=== PATIENT | male | born 1970 | race Caucasian/White ===

== ENCOUNTER 2017-03-05 20:53 | Emergency (ER) | payer BC, OTHER ==
[~2017-03-05] VITALS: Ht 185.4 cm; Wt 92.4 kg
[2017-03-05 20:58] VITALS: TEMP 36.8; Ht 185.4 cm; Wt 92.4 kg
[2017-03-05] MEDS ORDERED: BUPIVACAINE 0.25% 30 ML VIAL INFIL STA (21:08)
[2017-03-05] MEDS ORDERED: XYLOCAINE 1%/SOD BICARB 20 ML VIAL INFIL ONE (21:15)
[2017-03-05] MEDS ORDERED: DIPHTHERIA/TETANUS/PERTUSSIS 0.5 ML SYR/VIAL IM. ONE (21:15)
--- NOTE | 2017-03-05 21:24 | DIAGNOSTIC IMAGING REPORT ---
L FINGER(S) MIN 2 VIEWS ROUTINE HISTORY: 46 years-old Male tip of left 2nd finger avulsed, eval open fracture acute injury of the left second finger COMPARISON: None available TECHNIQUE: 3 views of the left second finger FINDINGS: There is a focal soft tissue defect noted involving the dorsal aspect of the distal left second finger. The distal phalanx appears intact. No acute fracture or dislocation. No opaque foreign body identified. IMPRESSION: Focal laceration of the distal second finger without acute bony abnormality or opaque foreign body. The above report was generated using voice recognition software. It may contain grammatical, syntax or spelling errors. Electronically signed by: Vicente Vargas M.D. 03/05/2017 9:23 PM Dictated Date/Time: 03/05/2017 9:21 PM
[2017-03-05] MEDS ORDERED: IBUP-1450 PO (21:30)
--- NOTE | 2017-03-05 21:40 | EMERGENCY ROOM VISIT NOTE ---
ED Visit Note First contact with patient: 21:02 CHIEF COMPLAINT: Finger injury today HISTORY OF PRESENT ILLNESS: This 46-year-old male patient presents to the emergency department with complaint of an injury to his left second finger today at 3:15pm. He states that he was operating a table saw, caught the tip of his finger in the saw blade. He states that he has had The bleeding has been controlled since arrival. Patient reports his last tetanus shot was in 2012. He is right-hand dominant. He denies any other injuries. He denies any weakness, numbness or tingling of the finger. He denies any suspected foreign bodies. He states his last tetanus was over 10 years ago. REVIEW OF SYSTEMS: Neurological: No headache, new changes in mental status, focal weakness, numbness. Skin: No rash, new lesions, or masses. General: No fever or chills, fatigue, loss of appetite, or significant recent weight gain or loss. PMH: The patient is healthy; there is no significant medical or surgical history. SOCIAL HISTORY: Patient lives at home. PHYSICAL EXAM: Vital Signs: Reviewed Nurse's notes. The wrist joint is not swollen or tender. The hand is not swollen and the skin is intact. The distal second finger tip is avulsed off, through the distal end of the nail and the pad of the finger. No exposed bone, tendon, or blood vessel visible in the base of the wound. The area is tender to palpation, mild bleeding noted. Sensation is intact on all aspects of the distal finger, flexion and extension fully intact. IMAGING: L FINGER(S) MIN 2 VIEWS ROUTINE HISTORY: 46 years-old Male tip of left 2nd finger avulsed, eval open fracture acute injury of the left second finger COMPARISON: None available TECHNIQUE: 3 views of the left second finger FINDINGS: There is a focal soft tissue defect noted involving the dorsal aspect of the distal left second finger. The distal phalanx appears intact. No acute fracture or dislocation. No opaque foreign body identified. IMPRESSION: Focal laceration of the distal second finger without acute bony abnormality or opaque foreign body. EMERGENCY DEPARTMENT COURSE: I examined the patient. Differential diagnosis includes avulsion, laceration, nail bed injury, foreign body, open fracture, among others. An X-Ray of the left second finger is negative for fractures. I obtained verbal consent from the patient to perform the procedure. The base of the left second finger was cleansed with saline and Betadine, and a digital block was performed with 50:50 solution of 1% buffered lidocaine and 0.25% bupivacaine. After appropriate anesthesia was achieved, the wound was irrigated with pressure using copious amount of normal saline. The wound was then explored, noting a fingertip laceration extending through the nail and nailbed, with partial avulsion of the nail bed and fingertip tissue. There is also 1 cm of nonviable tissue was debrided from the wound edges. The wound was cleansed and dried, then a piece of GelFoam was applied to the fingertip wound, with good adherence and bleeding controlled. An occlusive dressing applied. Patient tolerated the procedure well. The patient was educated on proper wound care and follow up, as well as concerning signs to watch for, he verbalized understanding. The patient was discharged home in stable condition and ambulatory. Blood pressure screening: The patient was found to have an elevated blood pressure and was referred to their primary doctor for recheck and further treatment. Problem List Medical Problems: (1) Dizziness And Giddiness Status: Resolved (2) Head Injury, Nos Status: Resolved (3) No known health problems Status: Chronic (4) Syncope And Collapse Status: Resolved Current/Historical Medications Scheduled PRN Ibuprofen (Motrin), 600 MG PO Q6H PRN for Pain Allergies Coded Allergies: No Known Allergies (Unverified , 08/30/13) Vital Signs Date Time Temp Pulse Resp B/P (MAP) Pulse Ox O2 Delivery O2 Flow Rate FiO2 03/05/17 22:55 68 20 147/87 98 03/05/17 20:58 36.8 61 18 157/98 96 Room Air Medications Administered Medications (Trade) Dose Ordered Sig/Susan Route Start Time Stop Time Status Last Admin Dose Admin Diphtheria/ Pertussis/Tetanus Vacc (Adacel Inj) 0.5 ml ONCE ONCE IM. 03/05/17 21:15 03/05/17 21:16 DC 03/05/17 21:20 0.5 ML Departure Information Impression Primary Impression: Avulsion, finger tip Dispostion Home / Self-Care Condition GOOD Referrals No Doctor, Assigned (PCP) Patient Instructions ED Avulsion Dermal, My [facility] Additional Instructions You have been treated in the Emergency Department today for your fingertip Avulsion. Leave the GELFOAM and dressing in place for the next 3 days. Keep the dressing clean and dry until time for removal. To remove the GELFOAM dressing, remove the overlying tape and then soak the wound in warm water until the piece of GELFOAM can be easily removed. Proper wound care is essential for adequate wound healing and infection prevention. You can shower and clean the wound with soap and water. Do not scour over the wound, pat dry with a towel. You can use an antibiotic ointment with a dressing/bandage over the wound for the next 3-4 days. After this time you may leave the wound dry and open to the air. Look for signs of infection of the wound including: increased pain, swelling, foul discharge, streaking up the hand, or fevers/chills. If any of these are noticed you should return to the Emergency Department for further assessment and treatment. As with any laceration you may have received nerve damage to the surrounding tissues. This damage could be permanent. For pain control, you can use the following [id number] medicines (if >12 yo): - Regular strength (325mg/tab) Tylenol (acetaminophen) 2 tabs every 4-6 hours as needed. Do not exceed 10 tablets in a 24 hour period. Avoid taking more than 3000 mg of Tylenol per day. This includes any other sources of acetaminophen you may take on a regular basis. - Regular strength (200 mg/tab) Advil (ibuprofen) 1-2 tabs every 4-6 hours as needed. Do not exceed a dose of 2400 mg per day. Return to the emergency department if your symptoms worsen despite treatment course outlined above. Work Instructions Return To Work: 1 day Problem Qualifiers Primary Impression: Avulsion, finger tip Encounter type: initial encounter Qualified Codes: S61.209A - Unspecified open wound of unspecified finger without damage to nail, initial encounter
[2017-03-05] MEDS ORDERED: GELATIN SPONGE 12-7MM EXT ONE (21:45)
[2017-03-05 22:55] VITALS: BP 147/87; PULSE 68; O2SAT 98
== END 2017-03-05 22:55 | disposition home or self-care (01) ==
LOC: C.EDB 20:55 → C.EDD 22:55
DX: S61.301A Unspecified open wound of left index finger with damage to nail, initial encounter (principal); W31.2XXA Contact with powered woodworking and forming machines, initial encounter; Z23 Encounter for immunization

== ENCOUNTER 2019-08-05 11:57 | Observation (INO) ==
[2019-08-05] MEDS ORDERED: SODIUM CHLORIDE 0.9% 1000ML 1,000 ML IV SCH (12:45)
--- NOTE | 2019-08-05 12:46 | Emergency Department Note ---
Impression & Plan Stroke-like symptoms ED Provider Note NAME: GENNA CURRY AGE: 48 SEX: M ARRIVES VIA: Walk-In INFORMANT: [Patient] ED PROVIDER(S): Tay Delgadillo MD CHIEF COMPLAINT: PLAN: Disposition: Admitted Condition: [Good] MEDICAL DECISION MAKING: Patient presented with symptoms concerning for strokelike/TIA event. He had resolution of symptoms. He underwent a work-up below. His laboratory testing was unremarkable. Lyme testing showed an IgG but no IgM. He has prior history of Lyme infection. Patient underwent CT imaging which did not reveal an acute infarction. He does have abnormalities noted on CT angiography of the head. This prompted a consult with Jasmina mcgarry, Dr. Blanc. She recommended a Plavix load of 300 mg as well as aspirin and then dual antiplatelet therapy. She also agreed with the hydration that the patient was already started on. She advised the patient should be admitted and have a further work-up regarding the vessel abnormality seen on angiography. I did discuss this with the patient. He was educated. He was in agreement. I did consult with Dr. Hi of [facility]. He evaluated the patient in the ER and admitted him for further management. Triage Nursing notes reviewed and agree them. [Prior medical records reviewed] patient had his neurologic event in 2013 and 2014. Treated for Lyme. Vital Signs: reviewed and remarkable for [no significant abnormalities] Differential diagnosis: CVA, TIA, Lyme disease, Coronavirus, Infection, dehydration, metabolic abnormality, hypo/hyperglycemia, electrolyte disturbance, anemia, hypoxia, cardiac sources, intracerebral event, toxicologic, neurologic, as well as other pathologies. ER treatment provided: NSS hydration Oral Plavix Oral aspirin Diagnostics interpreted by me: ECG: Rate: 61 Rhythm:Normal sinus [place]: Left axis deviation QRS:Normal ST segements:No elevation or depression Other:No PACs or PVCs Cardiac Monitoring: Cardiac monitoring ordered by me: The patient was placed on continuous cardiac monitoring and observed. It revealed a normal sinus rhythm at 63 beats per minute without ectopy or evidence of dysrhythmia. Laboratory studies: [See below] unremarkable CBC and chemistry panel. Imaging studies: CT angiography of the head and neck was performed. There is no acute infarction. Abnormalities noted within the CT angiography of the head. I refer you to the EMR for details. Consultation(s): Dr. Guanaco Rueda. [facility] group, Dr. Hi HPI: The patient is a 48 year old male who presents to the Emergency Room with complaints of stroke like symptoms. He had slurred speech and numbness in the left hand, 3rd digit. This started at 1030 this morning and is resolved. The patient also notes the following associated symptoms, intermittent left headaches over the last few days and occasional right eye peripheral vision disturbance, and occasional nausea. The patient has been using Motrin for relieving factors. Current pain is rated as 0/10. He has a history of Neuro Lyme in 2013 and 2014. A personal friend who is a physician directed him to the ER. He was concerned for the stroke symptoms in light of the current coronavirus pandemic. Pt has no known sick contacts. Pt denies LOC, fevers, chills, diaphoresis, visual changes, neck pain, chest pain, breathing difficulties, vomiting, abdominal pain, back pain, melena, hematochezia, urinary symptoms, lymphadenopathy, rash, or other complaints. ROS: See above HPI for pertinent positives & negatives. A total of [10] systems reviewed and were otherwise negative. PAST MEDICAL HISTORY:[See Below] PAST SURGICAL HISTORY:[See Below] FAMILY HISTORY:[See Below] SOCIAL HISTORY:[See Below] HOME MEDICATIONS:[See Below] ALLERGIES:[See Below] VITALS:[See Below] PHYSICAL EXAMINATION: GENERAL: Awake, alert, well appearing, no distress HENT: Normocephalic, atraumatic. TM's normal. Oropharynx unremarkable. EYES: PERRL. EOMI. Normal conjunctiva. Sclera non-icteric. NECK: Supple. Normal inspection. Non-tender. No nuchal rigidity. FROM. No bruit. RESPIRATORY: Breath sounds equal. No wheezes. No rhonchi. Normal respiratory effort. CARDIAC: Normal rate. Regular rhythm. No murmurs. No rubs. No JVD. GI: Soft, non distended. No tenderness to palpation. No rebound or guarding. No masses. RECTAL: Deferred. MUSCULOSKELETAL: Unremarkable. No edema. No discoloration. Gross motor strength symmetric. NEURO: Cranial nerves 2-12 grossly intact. Normal sensorium. No sensory or motor deficits noted. Speech normal. No pronator drift. Normal rapid a lternating movements. Gait normal. Negative rhomberg. Normal heel to [place]. SKIN: No rash or jaundice noted. LYMPH: No adenopathy. ED COURSE: [Critical Care:] [None] Tay Delgadillo MD Past Med/Surg History Surgical History (Updated 04/24/19 @ 08:05 by Francie Vasquez) S/P wisdom tooth extraction Family History (Updated 04/24/19 @ 08:19 by Carlos Arellano DO) Mother Skin cancer Brother Epilepsy Grandmother Breast cancer Melanoma Denies family history of Ovarian cancer Myocardial infarction Colorectal cancer Social History (Updated 04/24/19 @ 08:08 by Francie Vasquez) Preferred Language: Beninese Communication Ability: Effective Visual Impairment: No Limitations Hearing Ability: Normal marital status: Current Living Situation: Spouse current occupational status: employed current occupation: self - snow removal Feels Safe at Home: Yes Smoking Status: Never smoker Tobacco Type: cigarettes ; Age Started Using Tobacco: 10 ; Age Quit Using Tobacco: 28 ; packs per day: 1 ; Hx Alcohol Use: No Hx Substance Use: No Childhood Exposure to Second-Hand Smoke: No Dental Care, Regularly: Yes Physical Activity Frequency: 3-4 Times per Week Seatbelt Use: always Sunscreen Use: Yes Allergies Allergies Allergy/AdvReac Type Severity Reaction Status Date / Time No Known Allergies Allergy Mild Unverified 08/05/19 13:24 Home Meds Home Medications Medication Instructions Recorded Confirmed No Known Home Medications 11/24/18 08/05/19 Results & Data (ED) Vital Signs Vital Signs - 24 hr 08/05/19 12:07 08/05/19 12:49 08/05/19 12:50 Temperature 37.4 C Temperature Source Oral Pulse Rate 61 61 59 L Pulse Rate from SpO2 Sensor Respiratory Rate 20 24 24 Respiratory Effort / Characteristics Non-Labored Respiratory Depth Normal Blood Pressure 153/99 H Blood Pressure Mean 117 Pulse Oximetry 97 Oxygen Delivery Method Room Air Sepsis Recent Fever Within 48 Hours No Sepsis Action Taken by Nursing No Action Required 08/05/19 12:58 08/05/19 13:00 08/05/19 13:10 Temperature Temperature Source Pulse Rate 61 58 L 56 L Pulse Rate from SpO2 Sensor 56 L Respiratory Rate 19 23 22 Respiratory Effort / Characteristics Respiratory Depth Blood Pressure 148/89 H 144/90 H Blood Pressure Mean 101 97 Pulse Oximetry 95 Oxygen Delivery Method Sepsis Recent Fever Within 48 Hours Sepsis Action Taken by Nursing 08/05/19 13:20 08/05/19 13:30 08/05/19 13:40 Temperature Temperature Source Pulse Rate 54 L 53 L 49 L Pulse Rate from SpO2 Sensor 55 L 51 L 48 L Respiratory Rate 20 19 18 Respiratory Effort / Characteristics Respiratory Depth Blood Pressure 120/78 Blood Pressure Mean 83 Pulse Oximetry 96 96 97 Oxygen Delivery Method Sepsis Recent Fever Within 48 Hours Sepsis Action Taken by Nursing 08/05/19 13:57 08/05/19 14:00 08/05/19 14:01 Temperature Temperature Source Pulse Rate 56 L 50 L 56 L Pulse Rate from SpO2 Sensor 49 L 56 L Respiratory Rate 17 19 21 Respiratory Effort / Characteristics Respiratory Depth Blood Pressure 141/85 H Blood Pressure Mean 95 Pulse Oximetry 97 96 Oxygen Delivery Method Sepsis Recent Fever Within 48 Hours Sepsis Action Taken by Nursing 08/05/19 14:10 08/05/19 14:20 08/05/19 14:30 Temperature Temperature Source Pulse Rate 51 L 46 L 47 L Pulse Rate from SpO2 Sensor 52 L 48 L 48 L Respiratory Rate 21 21 20 Respiratory Effort / Characteristics Respiratory Depth Blood Pressure 139/89 Blood Pressure Mean 96 Pulse Oximetry 97 97 97 Oxygen Delivery Method Sepsis Recent Fever Within 48 Hours Sepsis Action Taken by Nursing 08/05/19 14:40 08/05/19 14:50 08/05/19 15:04 Temperature Temperature Source Pulse Rate 46 L 45 L 45 L Pulse Rate from SpO2 Sensor 46 L 45 L 44 L Respiratory Rate 15 10 L 19 Respiratory Effort / Characteristics Respiratory Depth Blood Pressure Blood Pressure Mean Pulse Oximetry 97 97 98 Oxygen Delivery Method Sepsis Recent Fever Within 48 Hours Sepsis Action Taken by Nursing 08/05/19 15:10 08/05/19 15:20 08/05/19 15:41 Temperature Temperature Source Pulse Rate 50 L 44 L 49 L Pulse Rate from SpO2 Sensor 49 L 52 L Respiratory Rate 18 16 30 H Respiratory Effort / Characteristics Respiratory Depth Blood Pressure Blood Pressure Mean Pulse Oximetry 95 98 Oxygen Delivery Method Sepsis Recent Fever Within 48 Hours Sepsis Action Taken by Nursing 08/05/19 15:50 08/05/19 16:00 08/05/19 16:10 Temperature Temperature Source Pulse Rate 51 L 50 L 56 L Pulse Rate from SpO2 Sensor 51 L 50 L 54 L Respiratory Rate 18 20 17 Respiratory Effort / Characteristics Respiratory Depth Blood Pressure 134/93 Blood Pressure Mean 104 Pulse Oximetry 98 98 97 Oxygen Delivery Method Sepsis Recent Fever Within 48 Hours Sepsis Action Taken by Nursing 08/05/19 16:20 08/05/19 16:32 08/05/19 16:40 Temperature Temperature Source Pulse Rate 47 L 47 L 58 L Pulse Rate from SpO2 Sensor 47 L 57 L Respiratory Rate 18 19 14 Respiratory Effort / Characteristics Respiratory Depth Blood Pressure Blood Pressure Mean Pulse Oximetry 97 97 Oxygen Delivery Method Sepsis Recent Fever Within 48 Hours Sepsis Action Taken by Nursing 08/05/19 16:50 08/05/19 17:00 08/05/19 17:10 Temperature Temperature Source Pulse Rate 60 57 L 58 L Pulse Rate from SpO2 Sensor 60 59 L 53 L Respiratory Rate 17 27 H 23 Respiratory Effort / Characteristics Respiratory Depth Blood Pressure 152/104 H Blood Pressure Mean 109 Pulse Oximetry 97 Oxygen Delivery Method Sepsis Recent Fever Within 48 Hours Sepsis Action Taken by Nursing 08/05/19 17:20 08/05/19 17:30 08/05/19 17:40 Temperature Temperature Source Pulse Rate 53 L 60 62 Pulse Rate from SpO2 Sensor 60 53 L Respiratory Rate 13 21 17 Respiratory Effort / Characteristics Respiratory Depth Blood Pressure 148/101 H Blood Pressure Mean 120 Pulse Oximetry 95 98 Oxygen Delivery Method Sepsis Recent Fever Within 48 Hours Sepsis Action Taken by Nursing 08/05/19 17:50 08/05/19 18:00 08/05/19 18:10 Temperature Temperature Source Pulse Rate 53 L 61 49 L Pulse Rate from SpO2 Sensor 53 L 62 50 L Respiratory Rate 15 20 16 Respiratory Effort / Characteristics Respiratory Depth Blood Pressure 136/94 Blood Pressure Mean 98 Pulse Oximetry 97 97 97 Oxygen Delivery Method Sepsis Recent Fever Within 48 Hours Sepsis Action Taken by Nursing Laboratory Data Result diagrams: 08/05/19 13:02 08/05/19 13:02 Lab Results 08/05/19 08/05/19 08/05/19 Range/Units 12:47 13:02 13:02 WBC 5.11 (4.8-10.8) K/uL RBC 5.98 (4.7-6.1) M/uL Hgb 18.2 H (14.0-18.0) g/dL Hct 49.6 (42-52) % MCV 82.9 (80-100) fL MCH 30.4 (25-34) pg MCHC 36.7 H (32-36) g/dL RDW Std Deviation 37.1 (36.4-46.3) fL RDW Coeff of Cherri 12.4 (11.5-14.5) % Plt Count 198 (130-400) K/uL MPV 10.5 H (7.4-10.4) fL Immature Gran % (Auto) 0.2 % Neut % (Auto) 64.3 % Lymph % (Auto) 27.6 % Stanton % (Auto) 6.1 % Eos % (Auto) 1.4 % Baso % (Auto) 0.4 % Immature Gran # (Auto) 0.01 (0.00-0.02) K/uL Neut # (Auto) 3.29 (1.4-6.5) K/uL Lymph # (Auto) 1.41 (1.2-3.4) K/uL Stanton # (Auto) 0.31 (0.11-0.59) K/uL Eos # (Auto) 0.07 (0-0.5) K/uL Baso # (Auto) 0.02 (0-0.2) K/uL PT (9.0-12.0) Seconds INR (0.9-1.1) APTT (21.0-31.0) Seconds PTT Ratio D-Dimer (0-500) ug/L FEU Sodium (136-145) mmol/L Potassium (3.5-5.1) mmol/L Chloride (98-107) mmol/L Carbon Dioxide (21-32) mmol/L Anion Gap (3-11) BUN (7-18) mg/dl Creatinine (0.6-1.4) mg/dl Est Cr Clr Drug Dosing Est GFR ( Amer) Est GFR (Non-Af Amer) BUN/Creatinine Ratio (10-20) Glucose (70-99) mg/dl Calcium (8.5-10.1) mg/dl Magnesium (1.8-2.4) mg/dl Total Bilirubin (0.2-1) mg/dl AST (15-37) U/L ALT (12-78) U/L Alkaline Phosphatase (45-117) U/L Troponin I (0-0.045) ng/ml Total Protein (6.4-8.2) gm/dl Albumin (3.4-5.0) gm/dl Globulin (2.5-4.0) gm/dl Albumin/Globulin Ratio (0.9-2) Urine Color Urine Appearance (Clear) Urine pH (4.5-7.5) Ur Specific [place] (1.000-1.030) Urine Protein (Negative) Urine Glucose (UA) (Negative) Urine Ketones (Negative) Urine Blood (Negative) Urine Nitrite (Negative) Urine Bilirubin (Negative) Urine Urobilinogen (Negative) Ur Leukocyte Esterase (Negative) Lyme Disease IgG Ab (Negative) Lyme Disease IgM Ab (Negative) SARS-CoV-2 RNA (RT-PCR) Cancelled Blood Type A Positive Antibody Screen NEGATIVE 08/05/19 08/05/19 08/05/19 Range/Units 13:02 13:02 13:02 WBC (4.8-10.8) K/uL RBC (4.7-6.1) M/uL Hgb (14.0-18.0) g/dL Hct (42-52) % MCV (80-100) fL MCH (25-34) pg MCHC (32-36) g/dL RDW Std Deviation (36.4-46.3) fL RDW Coeff of Cherri (11.5-14.5) % Plt Count (130-400) K/uL MPV (7.4-10.4) fL Immature Gran % (Auto) % Neut % (Auto) % Lymph % (Auto) % [place] % (Auto) % Eos % (Auto) % Baso % (Auto) % Immature Gran # (Auto) (0.00-0.02) K/uL Neut # (Auto) (1.4-6.5) K/uL Lymph # (Auto) (1.2-3.4) K/uL Stanton # (Auto) (0.11-0.59) K/uL Eos # (Auto) (0-0.5) K/uL Baso # (Auto) (0-0.2) K/uL PT 10.6 (9.0-12.0) Seconds INR 1.0 (0.9-1.1) APTT 25.1 (21.0-31.0) Seconds PTT Ratio 0.9 D-Dimer < 190 (0-500) ug/L FEU Sodium 142 (136-145) mmol/L Potassium 4.0 (3.5-5.1) mmol/L Chloride 111 H (98-107) mmol/L Carbon Dioxide 24 (21-32) mmol/L Anion Gap 7.0 (3-11) BUN 17 (7-18) mg/dl Creatinine 1.23 (0.6-1.4) mg/dl Est Cr Clr Drug Dosing Not Reportable Est GFR ( Amer) 78.8 Est GFR (Non-Af Amer) 68.0 BUN/Creatinine Ratio 14.1 (10-20) Glucose 119 H (70-99) mg/dl Calcium 8.6 (8.5-10.1) mg/dl Magnesium 2.1 (1.8-2.4) mg/dl Total Bilirubin 0.6 (0.2-1) mg/dl AST 20 (15-37) U/L ALT 38 (12-78) U/L Alkaline Phosphatase 63 (45-117) U/L Troponin I < 0.015 (0-0.045) ng/ml Total Protein 7.5 (6.4-8.2) gm/dl Albumin 3.9 (3.4-5.0) gm/dl Globulin 3.6 (2.5-4.0) gm/dl Albumin/Globulin Ratio 1.1 (0.9-2) Urine Color Urine Appearance (Clear) Urine pH (4.5-7.5) Ur Specific [place] (1.000-1.030) Urine Protein (Negative) Urine Glucose (UA) (Negative) Urine Ketones (Negative) Urine Blood (Negative) Urine Nitrite (Negative) Urine Bilirubin (Negative) Urine Urobilinogen (Negative) Ur Leukocyte Esterase (Negative) Lyme Disease IgG Ab Positive A (Negative) Lyme Disease IgM Ab Negative (Negative) SARS-CoV-2 RNA (RT-PCR) Blood Type Antibody Screen 08/05/19 Range/Units 13:52 WBC (4.8-10.8) K/uL RBC (4.7-6.1) M/uL Hgb (14.0-18.0) g/dL Hct (42-52) % MCV (80-100) fL MCH (25-34) pg MCHC (32-36) g/dL RDW Std Deviation (36.4-46.3) fL RDW Coeff of Cherri (11.5-14.5) % Plt Count (130-400) K/uL MPV (7.4-10.4) fL Immature Gran % (Auto) % Neut % (Auto) % Lymph % (Auto) % [place] % (Auto) % Eos % (Auto) % Baso % (Auto) % Immature Gran # (Auto) (0.00-0.02) K/uL Neut # (Auto) (1.4-6.5) K/uL Lymph # (Auto) (1.2-3.4) K/uL [place] # (Auto) (0.11-0.59) K/uL Eos # (Auto) (0-0.5) K/uL Baso # (Auto) (0-0.2) K/uL PT (9.0-12.0) Seconds INR (0.9-1.1) APTT (21.0-31.0) Seconds PTT Ratio D-Dimer (0-500) ug/L FEU Sodium (136-145) mmol/L Potassium (3.5-5.1) mmol/L Chloride (98-107) mmol/L Carbon Dioxide (21-32) mmol/L Anion Gap (3-11) BUN (7-18) mg/dl Creatinine (0.6-1.4) mg/dl Est Cr Clr Drug Dosing Est GFR ( Amer) Est GFR (Non-Af Amer) BUN/Creatinine Ratio (10-20) Glucose (70-99) mg/dl Calcium (8.5-10.1) mg/dl Magnesium (1.8-2.4) mg/dl Total Bilirubin (0.2-1) mg/dl AST (15-37) U/L ALT (12-78) U/L Alkaline Phosphatase (45-117) U/L Troponin I (0-0.045) ng/ml Total Protein (6.4-8.2) gm/dl Albumin (3.4-5.0) gm/dl Globulin (2.5-4.0) gm/dl Albumin/Globulin Ratio (0.9-2) Urine Color Yellow Urine Appearance Clear (Clear) Urine pH 5.0 (4.5-7.5) Ur Specific [place] 1.014 (1.000-1.030) Urine Protein Negative (Negative) Urine Glucose (UA) Negative (Negative) Urine Ketones Negative (Negative) Urine Blood Negative (Negative) Urine Nitrite Negative (Negative) Urine Bilirubin Negative (Negative) Urine Urobilinogen Negative (Negative) Ur Leukocyte Esterase Negative (Negative) Lyme Disease IgG Ab (Negative) Lyme Disease IgM Ab (Negative) SARS-CoV-2 RNA (RT-PCR) Blood Type Antibody Screen Administered Medications Sodium Chloride (Nss 1000ml) 1,000 mls @ 50 mls/hr IV .Q20H MARTHA Stop: 09/04/19 12:44 Last Admin: 08/05/19 13:18 Dose: 50 mls/hr Documented by: [id number] Sodium Chloride (Nss 1000ml) 1,000 mls @ 125 mls/hr IV .Q8H STA Stop: 08/06/19 00:27 Last Admin: 08/05/19 16:55 Dose: 125 mls/hr Documented by: [id number] Ioversol (Optiray 320 125ml) 115 ml IV ONCE PRN PRN Reason: Interaction Checking Stop: 08/09/19 15:28 Last Admin: 08/05/19 15:30 Dose: 115 ml Documented by: [id number] Discontinued Medications Aspirin (Aspirin) 324 mg PO NOW STA Stop: 08/05/19 16:29 Last Admin: 08/05/19 16:55 Dose: 324 mg Documented by: [id number] Clopidogrel Bisulfate (Plavix) 300 mg PO NOW STA Stop: 08/05/19 16:29 Last Admin: 08/05/19 16:55 Dose: 300 mg Documented by: [id number] Discharge Plan Visit Data Chief Complaint: Neuro Symptoms/Deficit Stated Complaint: STROKE LIKE SX, REF'D BY FOR COVID TEST ED Provider: Tay Degladillo Discharge Problem: Stroke-like symptoms Forms Stand Alone Forms: [facility] Prescriptions Prescriptions: No Action No Known Home Medications RF: 0
[2019-08-05 13:13] LABS: Basophils # (auto) 0.02 K/uL (0-0.2); Basophils % (auto) 0.4 %; Eosinophils # (auto) 0.07 K/uL (0-0.5); Eosinophils % (auto) 1.4 %; Hematocrit (blood only) 49.6 % (42-52); Hemoglobin 18.2 g/dL (14.0-18.0); Immature Granulocytes # (auto) 0.01 K/uL (0.00-0.02); Immature Granulocytes % (auto) 0.2 %; Lymphocytes # (auto) 1.41 K/uL (1.2-3.4); Lymphocytes % (auto) 27.6 %; Mean Corpuscular Hemoglobin 30.4 pg (25-34); Mean Corpuscular Hgb Conc 36.7 g/dL (32-36); Mean Corpuscular Volume 82.9 fL (80-100); Mean Platelet Volume 10.5 fL (7.4-10.4); Monocytes # (auto) 0.31 K/uL (0.11-0.59); Monocytes % (auto) 6.1 %; Neutrophils # (auto) 3.29 K/uL (1.4-6.5); Neutrophils % (auto) 64.3 %; Platelet Count 198 K/uL (130-400); RDW Coefficient of Variation 12.4 % (11.5-14.5); RDW Standard Deviation 37.1 fL (36.4-46.3); Red Blood Count 5.98 M/uL (4.7-6.1); White Blood Count 5.11 K/uL (4.8-10.8)
[2019-08-05 13:24] LABS: D Dimer < 190 ug/L FEU (0-500); Partial Thromboplastin Ratio 0.9; Partial Thromboplastin Time 25.1 Seconds (21.0-31.0); Prothrombin Time 10.6 Seconds (9.0-12.0)
[2019-08-05 13:33] LABS: Alanine Aminotransferase 38 U/L (12-78); Albumin Level 3.9 gm/dl (3.4-5.0); Aspartate Aminotransferase 20 U/L (15-37); BUN Creatinine Ratio 14.1 (10-20); Blood Urea Nitrogen 17 mg/dl (7-18); Calcium 8.6 mg/dl (8.5-10.1); Carbon Dioxide 24 mmol/L (21-32); Chloride 111 mmol/L (98-107); Est GFR (African American) 78.8; Glucose 119 mg/dl (70-99); Magnesium 2.1 mg/dl (1.8-2.4); Sodium 142 mmol/L (136-145)
[2019-08-05 13:38] LABS: Albumin Globulin Ratio 1.1 (0.9-2); Alkaline Phosphatase 63 U/L (45-117); Bilirubin,Total 0.6 mg/dl (0.2-1); Globulin 3.6 gm/dl (2.5-4.0); Total Protein 7.5 gm/dl (6.4-8.2); Troponin I < 0.015 ng/ml (0-0.045)
[2019-08-05 14:00] LABS: Lyme Ab IgM w/WB Rflx Negative (Negative)
[2019-08-05 14:07] LABS: Lyme Ab IgG w/WB Rflx Positive (Negative)
--- NOTE | 2019-08-05 14:07 | XRay Report ---
XR chest 1V portable HISTORY: stroke like symptoms COMPARISON: Chest 02/01/2015. FINDINGS: The lungs are clear. Cardiac silhouette is normal in size. No pleural effusions. No pneumot horax. IMPRESSION: No acute process. ACT 112: Negative or not required by law. Electronically signed by: Dandre De La Garza M.D. 08/05/2019 2:05 PM
[2019-08-05 14:32] LABS: Appearance Urine Clear (Clear); Bilirubin Urine Negative (Negative); Blood Urine Negative (Negative); Color Urine Yellow; Glucose Urine UA Negative (Negative); Ketones Urine Negative (Negative); Leukocyte Esterase Urine Negative (Negative); Nitrite Urine Negative (Negative); Protein Urine Negative (Negative); Specific Gravity Urine 1.014 (1.000-1.030); Urobilinogen Urine Negative (Negative)
[2019-08-05] MEDS ORDERED: OPTIRAY 320 125ml IV PRN (15:29)
--- NOTE | 2019-08-05 16:01 | CT Scan Report ---
HEAD CT NONCONTRAST CT DOSE: 1544.90 mGycm HISTORY: Stroke symptoms. TECHNIQUE: Multiaxial CT images of the head were performed without the use of intravenous contrast. A utomated exposure control was utilized for this study. A dose lowering technique was utilized adheri ng to the principles of ALARA. Comparison: None. Findings: The paranasal sinuses and mastoid air cells are clear. The calvarium and skull base are int act. The ventricles and sulci are within normal limits. There is no mass, hematoma, midline shift, or acute infarct. Impression: No acute intracranial abnormality. ACT 112: Negative or not required by law. Electronically signed by: Dandre De La Garza M.D. 08/05/2019 4:00 PM
--- NOTE | 2019-08-05 16:08 | CT Scan Report ---
HEAD & NECK CTA HISTORY: Stroke symptoms. TECHNIQUE: Multiaxial CT images of the head were performed following the intravenous administration o f contrast to evaluate the major cerebral vessels. Multiaxial CT images of the neck were also perform ed following the intravenous administration of contrast to evaluate the major cervical vessels. Maxim um intensity projection images were also obtained. A dose lowering technique was utilized adhering to the principles of ALARA. COMPARISON: Carotid Doppler 04/30/2013. FINDINGS: There is no mass, hematoma, midline shift, or acute infarct. Visualized intracranial internal carotid arteries, distal vertebral arteries, and basilar artery are widely patent. There is no significant s tenosis, occlusion, or aneurysm seen within the bilateral ACAs or amf mechanic. 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 Multifocal moderate to severe stenosis involving the proxi mal right MCA. There is also focal area of high-grade stenosis at the inferior branch of the left M2 segment. This is best seen on image 57. Moderate focal stenosis seen within the inferior branch of th e right M2 segment. The aortic arch and proximal great vessels are widely patent. There is no significant stenosis, occ lusion, or dissection identified within the bilateral common carotid, internal carotid, or vertebral arteries. IMPRESSION: 1. Moderate to severe multifocal stenosis within the bilateral MCAs. 2. No significant stenosis, occlusion, or dissection identified within the carotid or vertebral arter ies. ACT 112: Negative or not required by law. Electronically signed by: Dandre De La Garza M.D. 08/05/2019 4:06 PM
[2019-08-05] MEDS ORDERED: CLOPIDOGREL BISULFATE 300 MG TAB PO STA (16:28)
[2019-08-05] MEDS ORDERED: ASPIRIN CHEW 324 MG PO STA (16:28)
[2019-08-05] MEDS ORDERED: SODIUM CHLORIDE 0.9% 1000ML 1,000 ML IV STA (16:28)
--- NOTE | 2019-08-05 16:41 | History & Physical Report ---
Date of Service August 05, 2019 Assessment & Plan (1) Stroke-like symptoms: Admit to PCU for cardiac monitoring Stroke without tPA protocol Complete stroke workup with TTE, Lipid profile, HbA1C in AM Concern for vasculitis from [facility] ([facility] (Dr Blanc) and recommended workup with lumbar puncture, serum ESR,CRP, ANCA, ALEXYS screen. Given sibling with rheumatoid will also order RF and anti-CCP Ab. Concern for possible lyme disease causing neurological symptoms previously and multiple tick exposures. IgM screen negative therefore will hold off antibiotics at present pending >= 2/3 IgM bands present in serum or CSF sample positive for this Concern for polycythemia as below ASA + Plavix loading doses as [facility] given in [facility], continue ASA 81mg PO daily + Plavix 75mg PO daily for 30 days then ASA alone as recommended from [facility] ([facility]). If CVA confirmed on imaging will start high intensity statin Hydralazine 5mg IV for sBP > 220 PT/OT/SLT consults as per routine but no issues expected Consult neurology - discussed case with Dr Ridley and telestroke neurologist Of note: No indication for COVID-19 testing (suspected CVA/TIA appears to be related to stenosis, not thromboembolic, no UTI Sx, fevers or chills). No need for aspiration precaution or negative pressure room. Therefore test was cancelled. (2) Expressive aphasia: Now resolved. Suspected TIA/CVA as above. (3) Intracranial vascular stenosis: As above. (4) Polycythemia: Hgb 18.2. No baseline but dehydration not suspected. No androgens or anabolic steroids as per patient. Given history of headache and suspected CVA/TIA will test for JAK2 V617F mutation. (5) Sinus bradycardia: Patient reports longstanding history of this. Implantable loop recorder placed previously after suspected lyme disease but no arrhythmias noted. (6) DVT prophylaxis: Deferred SCDs and chemical prophylaxis given expected good mobility and loading doses of aspirin and plavix given. Admission and Anticipated Discharge Date Admission Date: 08/05/2019 History of Present Illness Chief Complaint: Stroke-like symptoms Primary Care Provider: Carlos Arellano DO Yoan Parr is a 48 year old male who presents to the ER on advice of his friend (Dr Betito Osborne) due to stroke-like symptoms. There was initially some concern for COVID-19 given recent developments that the virus appears to increase risk of thromboembolic disease and CVAs. Initially symptoms started 1 week ago on Tuesday with right eye lateral vision "fish eye" blurring which quickly developed into a left sided headache with associated left neck and trapezius muscle pain. He feels this came on suddenly without any precipitating event. He is very active but doing any new exercises etc... It is unusual for him to have a headache. Characteristic - aching. Moderate pain lasted for hours but never completely resolved since then until today in the ER. He took acetaminophen to good effect. However the following day it woke him up and was much more painful, again associated with similar vision changes in his right eye. It has been waxing and waning since but actually improving for the last 2 days. Yesterday afternoon he notes a brief episode of not being able to move his right index finger to press buttons on the TV remote. Today he had an episode of numbness in just his distal 3rd digit on right hand which started at approximately 10:30am. Associated slurring of speech, expressive aphasia (he describes being unable to get the right words out). This lasted approximately 5-10 minutes and then completely resolved. He currently denies any vision/hearing/speech changes, extremity weakness or change in sensation. He does ongoing mild left superior trapezius discomfort. The patient is self employed - snow removal, splitting firewood. Currently isolating as protocol in lockdown with little contacts outside of his family who are well. No fevers, chills, shortness of breath, no cough, no nasal congestion, loss taste or smell. He has a history of Neurological Lyme disease in 2013 and 2014. Allergies Allergy/AdvReac Type Severity Reaction Status Date / Time No Known Allergies Allergy Mild Unverified 08/05/19 13:24 Home Medications Home Medications Medication Instructions Recorded Confirmed Type No Known Home Medications 11/24/18 08/05/19 History Past Med/Surg History Medical History (Updated 08/05/19 @ 21:30 by Job Hi MD) Lyme disease Surgical History (Updated 04/24/19 @ 08:05 by Francie Vasquez) S/P wisdom tooth extraction Family History (Updated 04/24/19 @ 08:19 by Carlos Arellano DO) Mother Skin cancer Brother Epilepsy Grandmother Breast cancer Melanoma Denies family history of Ovarian cancer Myocardial infarction Colorectal cancer Social History (Updated 04/24/19 @ 08:08 by Francie Vasquez) Preferred Language: Luxembourgish Communication Ability: Effective Visual Impairment: No Limitations Hearing Ability: Normal Park Interpretive Ranger Required: No Beliefs That Will Affect Care: None marital status: Current Living Situation: Spouse current occupational status: employed current occupation: self - snow removal Other Information That Helps Us Care for You: No Feels Safe at Home: Yes Safety Concerns: Feels Safe At This Time Smoking Status: Never smoker Tobacco Type: cigarettes ; Age Started Using Tobacco: 10 ; Age Quit Using Tobacco: 28 ; packs per day: 1 ; Hx Alcohol Use: No Hx Substance Use: No Childhood Exposure to Second-Hand Smoke: No Dental Care, Regularly: Yes Physical Activity Frequency: 3-4 Times per Week Seatbelt Use: always Sunscreen Use: Yes Review of Systems Review of Systems: All systems reviewed & are unremarkable except as noted in HPI & below Physical Exam Constitutional: well developed and well nourished; no acute distress Eyes: PERRL, conjunctivae normal, anicteric sclerae ENMT: external ear and nose normal, oropharynx normal Neck: trachea midline, no thyromegaly Respiratory: normal respiratory effort, lungs clear to auscultation Cardiovascular: Rate/Rhythm: regular rhythm and + bradycardic Heart Sounds: no murmur Vessels: posterior tibial pulses present and dorsalis pedis pulses present; no JVD Extremities: normal capillary refill; no calf tenderness and no pedal edema Gastrointestinal (Abdomen): normal bowel sounds, soft, nontender, no hepatosplenomegaly Musculoskeletal: no cyanosis or clubbing, extremities motor strength 5/5 Skin: no rashes, warm and dry Neurologic: moves all extremities and awake; no focal motor deficits and not confused Speech / Cognition: normal speech, no expressive aphasia and no receptive aphasia Motor/Sensory: no tremor and no pronator drift Cranial Nerves: sense of smell intact, PERRL, normal accommodation, EOM intact bilaterally, normal facial strength, tongue midline, normal hearing, able to rotate head bilaterally, able to elevate shoulders bilaterally, no nystagmus and symmetric palate elevation Coordination: normal [id number] test Psychiatric: A+Ox3, euthymic affect Genitourinary: no CVA tenderness Lymphatic: no cervical or axillary lymphadenopathy Results & Data Results & Data ([facility]) Vital Signs (Past 12 Hours) Vital Signs Temp Pulse Resp BP Pulse Ox 08/05/19 16:20 47 L 18 97 08/05/19 16:10 56 L 17 97 08/05/19 16:00 50 L 20 134/93 98 08/05/19 15:50 51 L 18 98 08/05/19 15:41 49 L 30 H 08/05/19 15:20 44 L 16 98 08/05/19 15:10 50 L 18 95 08/05/19 15:04 45 L 19 98 08/05/19 14:50 45 L 10 L 97 08/05/19 14:40 46 L 15 97 08/05/19 14:30 47 L 20 139/89 97 08/05/19 14:20 46 L 21 97 08/05/19 14:10 51 L 21 97 08/05/19 14:01 56 L 21 141/85 H 96 08/05/19 14:00 50 L 19 97 08/05/19 13:57 56 L 17 08/05/19 13:40 49 L 18 97 08/05/19 13:30 53 L 19 120/78 96 08/05/19 13:20 54 L 20 96 08/05/19 13:10 56 L 22 95 08/05/19 13:00 58 L 23 144/90 H 08/05/19 12:58 61 19 148/89 H 08/05/19 12:50 59 L 24 08/05/19 12:49 61 24 08/05/19 12:07 37.4 C 61 20 153/99 H [address] NONCONTRAST Impression: No acute intracranial abnormality. HEAD & NECK CTA IMPRESSION: 1. Moderate to severe multifocal stenosis within the bilateral MCAs. 2. No significant stenosis, occlusion, or dissection identified within the carotid or vertebral arteries. XR chest 1V portable IMPRESSION: No acute process. ECG Indication: altered mental status Rate (beats per minute): 61 Rhythm: normal sinus Findings: + left axis deviation; no acute ischemic change Comparison ECG Date: from (02/03/2015) Change: no significant change Code Status & VTE Plan Code Status Full as discussed with the patient VTE Prophylaxis Plan VTE Prophylaxis will be ordered: No Reason for no VTE drug order: Treatment not indicated Reason for no VTE mechanical prophylaxis: Treatment not indicated PG Care Time/CCT Total # of Minutes Spent Total Time Spent with Patient: Total time spent is greater than 50% in coordination of care (as documented) at patient's floor/unit and/or counseling patient: Coding Level of Care Code 89834 Initial Inpt Care Lvl 3 Diagnoses Stroke-like symptoms R29.90 Expressive aphasia R47.01 Intracranial vascular stenosis I67.9 Polycythemia D75.1 Sinus bradycardia R00.1 DVT prophylaxis Z29.9
[2019-08-05] MEDS ORDERED: PHARMACIST DISCHARGE MED REC CONSULT PRN (20:47)
[2019-08-05] MEDS ORDERED: ACETAMINOPHEN 325 MG TAB PO PRN (20:47)
[2019-08-05] MEDS ORDERED: POLYETHYLENE (MIRALAX) 17 GM PACK PO PRN (20:47)
[2019-08-05] MEDS ORDERED: ONDANSETRON INJ 2 MG/ML 2 ML VIAL IV PRN (20:47)
[2019-08-05] MEDS ORDERED: HydrALAZINE HCL 20 MG/ML VIAL IV PRN (20:54)
[2019-08-06 06:28] LABS: Basophils # (auto) 0.02 K/uL (0-0.2); Basophils % (auto) 0.4 %; Eosinophils # (auto) 0.13 K/uL (0-0.5); Eosinophils % (auto) 2.4 %; Hematocrit (blood only) 47.3 % (42-52); Hemoglobin 16.7 g/dL (14.0-18.0); Immature Granulocytes # (auto) 0.01 K/uL (0.00-0.02); Immature Granulocytes % (auto) 0.2 %; Lymphocytes # (auto) 2.14 K/uL (1.2-3.4); Lymphocytes % (auto) 39.9 %; Mean Corpuscular Hemoglobin 29.5 pg (25-34); Mean Corpuscular Hgb Conc 35.3 g/dL (32-36); Mean Corpuscular Volume 83.4 fL (80-100); Monocytes # (auto) 0.46 K/uL (0.11-0.59); Monocytes % (auto) 8.6 %; Neutrophils # (auto) 2.61 K/uL (1.4-6.5); Neutrophils % (auto) 48.5 %; Platelet Count 179 K/uL (130-400); RDW Coefficient of Variation 12.6 % (11.5-14.5); RDW Standard Deviation 37.8 fL (36.4-46.3); Red Blood Count 5.67 M/uL (4.7-6.1); White Blood Count 5.37 K/uL (4.8-10.8)
[2019-08-06 06:56] LABS: Estimated Average Glucose 105 mg/dl; Hemoglobin A1C 5.3 % (4.5-5.6)
[2019-08-06 07:02] LABS: BUN Creatinine Ratio 12.9 (10-20); Calcium 8.5 mg/dl (8.5-10.1); Creatinine Clr Calc Pharmacy 84.6 ml/min; Est GFR (African American) 82.9; Est GFR (Non-African American) 71.5
--- NOTE | 2019-08-06 08:19 | Hospitalist Progress Note ---
Date of Service August 06, 2019 Assessment & Plan (1) Stroke-like symptoms: Admit to PCU for cardiac monitoring Stroke without tPA protocol Complete stroke workup with TTE, Lipid profile, HbA1C in AM Concern for vasculitis from [facility] (Dr Blanc) and recommended workup with lumbar puncture, serum ESR,CRP, ANCA, ALEXYS screen. Given sibling with rheumatoid will also order RF and anti-CCP Ab. Concern for possible lyme disease causing neurological symptoms previously and multiple tick exposures. IgM screen negative therefore will hold off antibiotics at present pending >= 2/3 IgM bands present in serum or CSF sample positive for this Concern for polycythemia as below ASA + Plavix loading doses as recommended by [facility] given in ER, continue ASA 81mg PO daily + Plavix 75mg PO daily for 30 days then ASA alone as recommended from [facility]. If CVA confirmed on imaging will start high intensity statin Hydralazine 5mg IV for sBP > 220 PT/OT/SLT consults as per routine but no issues expected Consult neurology - discussed case with Dr Ridley and telero[facility] neurologist Of note: No indication for COVID-19 testing (suspected CVA/TIA appears to be related to stenosis, not thromboembolic, no UTI Sx, fevers or chills). No need for aspiration precaution or negative pressure room. Therefore test was cancelled. (2) Expressive aphasia: Now resolved. Suspected TIA/CVA as above. (3) Intracranial vascular stenosis: As above. (4) Polycythemia: Hgb 18.2. No baseline but dehydration not suspected. No androgens or anabolic steroids as per patient. Given history of headache and suspected CVA/TIA will test for JAK2 V617F mutation. (5) Sinus bradycardia: Patient reports longstanding history of this. Implantable loop recorder placed previously after suspected lyme disease but no arrhythmias noted. (6) DVT prophylaxis: Deferred SCDs and chemical prophylaxis given expected good mobility and loading doses of aspirin and plavix given. Admission and Anticipated Discharge Date Admission Date: August 05, 2019 Results & Data Results & Data ([facility]) Vital Signs (Past 12 Hours) Vital Signs Temp Pulse Pulse Resp BP Pulse Ox Pulse Ox 08/06/19 06:57 97.9 F 47 L 18 138/84 95 08/06/19 03:56 97.5 F L 43 L 16 133/79 96 08/06/19 00:00 97.5 F L 48 L 17 133/77 97 08/05/19 23:00 55 L 08/05/19 20:50 96 08/05/19 20:43 97.7 F 94 H 20 172/97 H 96 PG Care Time/CCT Total # of Minutes Spent Total Time Spent with Patient: Total time spent is greater than 50% in coordination of care (as documented) at patient's floor/unit and/or counseling patient: Coding Diagnoses Stroke-like symptoms R29.90 Expressive aphasia R47.01 Intracranial vascular stenosis I67.9 Polycythemia D75.1 Sinus bradycardia R00.1 DVT prophylaxis Z29.9
--- NOTE | 2019-08-06 08:51 | Electrocardiogram Report ---
Test Reason : Blood Pressure : / mmHG Vent. Rate : 061 BPM Atrial Rate : 061 BPM P-R Int : 176 ms QRS Dur : 096 ms QT Int : 392 ms P-R-T Axes : 041 -35 043 degrees QTc Int : 394 ms Normal sinus rhythm Incomplete right bundle branch block Left axis deviation Abnormal ECG When compared with ECG of 03-FEB-2015 07:24, No significant change was found Confirmed by Damion Rodas ([id number]) on 08/06/2019 8:51:20 AM Referred By: REFERRED SELF Confirmed By:Damion Rodas
[2019-08-06] MEDS ORDERED: CLOPIDOGREL BISULFATE 75 MG TAB PO SCH (09:00)
[2019-08-06] MEDS ORDERED: ASPIRIN 81 MG ECTAB PO SCH (09:00)
--- NOTE | 2019-08-06 09:42 | Neurology Consultation ---
Date of Consultation August 06, 2019 Assessment & Plan (1) Expressive aphasia: (2) Numbness and tingling in right hand: (3) Hyperlipidemia: Patient has a history of very brief episode August 04, of focal numbness in the distal digit of the right middle finger for 5 minutes followed by some word- finding/expressive speech problems lasting 3-5 minutes. He has had no recurrence of the symptoms and is quite asymptomatic currently. He has no focal neurologic findings, meningeal signs, or encephalopathy currently. CT scan of the head was unremarkable and CT angiography of the head neck revealed significant stenoses in the middle cerebral artery on the right and the left M2 segment. He has risk factors for cerebral vascular disease including former cigarette smoking, mildly high blood pressure, mild dyslipidemia, the intracranial arterial stenoses mentioned above, and probably Genetics. He has no evidence of diabetes. Although he was a former alcoholic he has not had cigarettes or alcohol for 20 years now. The etiology of his symptoms August 04 is likely a brief TIA or vasospasm. I note the high blood pressure which can trigger vasospasm. He has no history of migraine headaches otherwise. His events July 27 are reminiscent of a migraine phenomenon. He has some neck pain which could be contributing to headache as well. Recommendations: 1. MRI of the brain, without contrast, to evaluate for stroke and cerebral vascular disease status 2. Echocardiogram is pending. 3. Rheumatoid factor, ALEXYS, and final Western blot are pending. 4. Continue on dual antiplatelet therapy for now with 75 mg clopidogrel an 81 mg aspirin. After 3 weeks, discontinue clopidogrel and stay on 81 mg aspirin tablet alone. 5. Follow up with Neurology later this month (could do tele health visit) 6. I am not sure he needs the loop recorder still implanted but I will leave this up to his primary care physician and/or Cardiology. Overall, I spent a total of 110 minutes with this case including review of records, review of CT films, direct evaluation the patient at bedside, and discussing the case with the patient at bedside and his via telephone at bedside, and Dr. Stevenson, including differential diagnosis and treatment options. History of Present Illness Reason for Consultation: Patient is a 48-year-old, who I was asked to see the request of Dr. Hi, for neurologic consultation regarding possible stroke. Requesting Physician: Dr. Hi Attending Physician: Greg Stevenson MD History of Present Illness This patient carries no diagnosis of significant migraine headaches, heart disease, diabetes, hypertension, or stroke in the past. He takes no medication. His lifestyle is that he is very active and spends a lot of time, over the years, working hard and doing significant exercise workouts regularly (although this has been not quite as intense the last year or so). In early 2013 he had an episode of lightheadedness and dizziness with questionable loss of memory lasting about 4-5 hours. 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 Physically, he was doing fine. He denies some dizziness/lightheadedness and was drinking a lot of coffee. He had no loss of consciousness, jerking or shaking, tongue biting, or urinary incontinence. He was seen by Dr. Peralta, [facility] neurology, and an EEG and MRI were apparently unremarkable. He was put on Keppra for presumed seizure up to 3000 mg a day. He had no further events. In addition, he had progression of muscle spasms and myalgias with arthralgias. He had a positive Lyme disease test and was given 1 month of doxycycline. A 2nd course followed later that year. Because of the questionable seizure and some ongoing symptoms he saw Dr. Maravilla in May of 2014. She elected to taper off Keppra. Lot of his dizziness and other symptoms completely resolved once he was off the medication. In March of 2015, because of some cognitive issues/amnesia he was given another 1 month of doxycycline by Dr. Zepeda. In addition, he had seen Cardiology and they put in a loop recorder in 2014. He has had this in ever since. He did well after this and has had no further issues for approximately 5 years. The patient has had a history of about 6 concussions from age 8 up until 2013. 3 of these concussions worse associated with brief loss of consciousness for few seconds and the other 3 had no loss of consciousness. He has not had any resi dual symptoms referable to the head trauma in the past. On July 27, the patient woke up in the morning and noted blurry vision off peripherally to the right. This lasted about 10 minutes and was immediately followed by a left-sided achy pain (graded 3-5/10). It was mostly left occipital cervical junction up the left side of the head to behind the left eye. He took Tylenol and 2 hours later the headache resolved. Next morning he woke up around 0545 with a headache of the identical nature. The pain was 5-7/10. here was no vision problem this time. He took Tylenol and then to leave and by 10 o'clock in the morning he was back to normal. Ever since, he has had some very mild uncomfortable feelings at the occipital cervical junction on the left but no further headaches. On August 04, he woke up at 0600 feeling fine. Around 1000 he was getting dressed and had the sudden onset of intense numbness in the distal digit of the right middle finger (only). This lasted about 5 minutes and then resolved and he noted some slurred speech and slowness getting words out. His noted this as well. This lasted about 3-5 minutes and then became normal again. He has not had any recurrence of these issues since. He arrived to the emergency room at 1207 on August 04 with a temperature of 37.4, pulse 61 and regular, blood pressure 153/99, respiratory rate 20, and O2 saturation 97%. Neurologic examination was unremarkable with no focal signs, meningeal signs, or encephalopathy. His speech was normal. CBC showed a mildly elevated hemoglobin without white count elevation. Chemistry profile was remarkable for glucose of 119 (nonfasting). Urinalysis was unremarkable. ESR was 2, CRP 0.29, and CCP less than 0.04. Chest x-ray was unremarkable. CT scan of the head was unremarkable. Lyme Western blot is pending. CT angiography of the neck was unremarkable with no significant stenoses or vessel anomalies. CT angiography of the head was remarkable for a very high-grade stenosis of the left M2 segment, and moderate to severe stenosis in the right middle cerebral artery proximal portion and the right M2 segment Echocardiogram is pending. Triglycerides were 225 and fasting cholesterol was 199. Hemoglobin A1c was 5.3. Repeat CBC and chemistry profile were unremarkable and blood pressure this morning was 138/84. Allergies Allergy/AdvReac Type Severity Reaction Status Date / Time No Known Allergies Allergy Mild Unverified 08/05/19 13:24 Home Medications Home Medications Medication Instructions Recorded Confirmed Type No Known Home Medications 11/24/18 08/05/19 History Patient History Medical History (Updated 08/06/19 @ 09:51 by Cb Nieves MD) Dyslipidemia Lyme disease Surgical History S/P wisdom tooth extraction Family History Mother Skin cancer Coronary heart disease Brother Epilepsy Grandmother Breast cancer Melanoma Father , age 76 of heart disease/alcoholism Heart disease Denies family history of Ovarian cancer Myocardial infarction Colorectal cancer Social History Preferred Language: Cymro Communication Ability: Effective Visual Impairment: No Limitations Hearing Ability: Normal 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 Quit 20 years ago) Hx Substance Use: No Childhood Exposure to Second-Hand Smoke: No Dental Care, Regularly: Yes Physical Activity Frequency: 3-4 Times per Week Seatbelt Use: always Sunscreen Use: Yes Review of Systems Constitutional: no fever, no fatigue and no weakness Eyes: no diplopia, no eye pain and no worsening vision Ear, Nose, Mouth, Throat: no ear pain, no tinnitus, no hearing loss, no dizziness, no snoring, no hoarseness and no dysphagia Respiratory: no cough and no dyspnea Cardiovascular: no chest pain, no palpitations and no lightheadedness Gastrointestinal: no abdominal pain, no nausea and no vomiting Genitourinary: no dysuria and no decreased urination Musculoskeletal: + neck pain; no back pain, no radicular pain, no joint pain and no myalgia Integumentary: no rash and no lesions Neurologic: no gait abnormality, no localized weakness, no generalized weakness, no tingling, no numbness, no tremor(s), no abnormal movements, no headache(s), no abnormal speech, no confusion and no memory loss Psychiatric: no depression, no irritability, no anxiety, no difficulty concentrating, no confusion and no hallucinations Endocrine: no fatigue and no flushing Hematologic / Lymphatic: no easy bleeding and no easy bruising Allergy / Immunological: no urticaria and no problem reported Exam (Neuro) Physical Exam: The patient is right-handed. The patient is awake, alert, and attentive. Speech is normal without any aphasia or dysarthria. he can name objects, repeat phrases, and has normal spontaneous speech. Mentation and thought processes are intact, with orientation to person, place and time, and normal fund of knowledge. Attention and concentration are normal. Mood and affect are normal and appropriate. General appearance and grooming are normal. Short and long-term memory are intact. The discs are sharp with positive venous pulsations bilaterally. There are no exudates, hemorrhages, or blood vessel changes seen. Pupils are 4 mm bilaterally and reactive to light. Extraocular eye muscles are intact without nystagmus. Visual acuity and visual stewart seem normal grossly to confrontation. There are no deficits to sensation in the face in all 3 distributions of the fifth cranial nerve bilaterally. Corneal reflexes are positive bilaterally. Facial strength and symmetry was normal bilaterally. Hearing seems normal to whisper and finger rub bilaterally. Palate moves well without asymmetry. There is normal sternocleidomastoid and trapezius (shoulder shrug) strength bilaterally. Tongue is midline with good strength bilaterally. Neck has a full range of motion without discomfort. There are no cervical bruits bilaterally. There are no cranial or ocular bruits. Heart is without murmur. There is a regular rhythm and rate. Cervical, thoracic, and lumbar spine are nontender to palpation. Gait is narrow based, with good arm swing, turns, and stance. Balance is normal eyes open or closed. With outstretched arms there is no drift. There are no resting, postural, or action tremors. There is no ataxia with finger to nose testing. There is good facility in the hands. No other abnormal involuntary movements are noted. Motor strength is 5/5 diffusely in the arms bilaterally including deltoids, biceps, triceps, brachioradialis, wrist flexors and extensors, it auditor, and intrinsic hand muscles. Motor strength is 5/5 diffusely in the legs bilaterally including hip flexors, quadriceps, hamstrings, gastrocnemius, tibialis anterior, tibialis posterior, and Peroneii muscles. Toe extensors are normal and there is good bulk in the extensor digitorum brevis muscles bilaterally. The limbs have good tone without rigidity or spasticity. There is no atrophy noted in the muscles. Muscle bulk is normal, there is no tenderness to palpation, no myotonia to percussion, and no fasciculations seen. Sensory examination is intact to touch and pin throughout all 4 limbs diffusely. Reflexes are 2/4 in the biceps, triceps, brachioradialis, quadriceps, and Achilles tendons bilaterally. There is no clonus bilaterally. Toes are downgoing with plantar stimulation bilaterally. Peripheral pulses are present and of normal quality distally in all 4 limbs. There is no peripheral edema noted in the limbs. Results & Data ([facility]) Vital Signs (Past 12 Hours) Vital Signs Temp Pulse Pulse Resp BP Pulse Ox 08/06/19 08:41 62 08/06/19 06:57 36.6 C 47 L 18 138/84 95 08/06/19 03:56 36.4 C L 43 L 16 133/79 96 08/06/19 00:00 36.4 C L 48 L 17 133/77 97 08/05/19 23:00 55 L PG Care Time/CCT Total # of Minutes Spent Total Time Spent with Patient: Total time spent is greater than 50% in coordination of care (as documented) at patient's floor/unit and/or counseling patient: Coding Level of Care Code 00329 Inpt Consult Level 4 Diagnoses Expressive aphasia R47.01 Numbness and tingling in right hand R20.0; R20.2 Hyperlipidemia E78.5 Time Spent (min) 110 Comment Add [id number] to this [id number]
--- NOTE | 2019-08-06 10:12 | XCELERA ---
[id number]
[2019-08-06] MEDS ORDERED: GADOBUTROL 65ML VIAL IV PRN (16:56)
--- NOTE | 2019-08-06 17:03 | Magnetic Resonance Report ---
MR brain wo/w con CLINICAL HISTORY: left headache, R 3rd digit numb COMPARISON STUDY: 02/02/2015 TECHNIQUE: Utilizing a 1.5 Vee magnet and dedicated coil, multiplanar, multiecho imaging of the br ain was performed pre and postcontrast administration. IV administration of 8 mL of Gadavist contras t was uneventful. FINDINGS: Diffusion images show no evidence for an acute ischemic process. Signal characteristics of the cerebellar as well as cerebral hemispheres are unremarkable. Small focus of minimally increased in signal posterior right temporal lobe. No abnormal postcontrast enhancement. Ventricular systems are unremarkable. The ventricular system is midline. IMPRESSION: No acute process. No change from the prior exam. ACT 112: Negative or not required by law. The above report was generated using voice recognition software. It may contain grammatical, syntax or spelling errors. Electronically signed by: Jeremiah Fair M.D. 08/06/2019 5:02 PM
[2019-08-06] MEDS ORDERED: STROKE PATIENT DISCHARGE STA (17:23)
--- NOTE | 2019-08-06 17:40 | Pharmacy Report ---
Pharmacist Stroke Counseling - Date of Service August 06, 2019 - Scope: Pharmacy has been consulted to provide medication discharge counseling for this patient admitted with transient ischemic attack as per the Pharmacist Discharge Counseling for Stroke Patients Protocol. - Medications on Discharge: Home Medications Medication Instructions Recorded Confirmed No Known Home Medications 11/24/18 08/05/19 New Rx's Medication Instructions Recorded aspirin 81 mg PO QAM #180 tab 08/06/19 atorvastatin 40 mg PO DAILY #30 tab 08/06/19 clopidogrel 75 mg PO QAM #21 tab 08/06/19 - Action: The above medications, specifically ones for stroke treatment/prophylaxis, have been reviewed in detail with the patient and/or patient sales representative groceries(s) prior to discharge. This includes indication, common adverse reactions, drug interactions, and medication administration. Medication counseling has been employed using the teach-back method to ensure understanding. - Outcome: The patient and/or patient sales representative groceries(s) have demonstrated understanding of the medications. Please note, they are aware that the pharmacist will call them within 72 hours post-discharge to confirm that the appropriate medications are being taken and answer any further medication related questions the patient might have at that time. Contact information Individual to be contacted: Yoan Relationship to patient (if applicable): self Phone number: [phone] Best time to call: after 8am Additional comments: Thank you for allowing pharmacy to be involved in the care of this patient. Please call [phone] or [phone] with any additional questions
--- NOTE | 2019-08-06 17:45 | Discharge Summary ---
Date of Service August 06, 2019 Admission HPI Per Admitting Provider Yoan Parr is a 48 year old male who presents to the ER on advice of his friend (Dr Betito Osborne) due to stroke-like symptoms. There was initially some concern for COVID-19 given recent developments that the virus appears to increase risk of thromboembolic disease and CVAs. Initially symptoms started 1 week ago on Tuesday with right eye lateral vision "fish eye" blurring which quickly developed into a left sided headache with associated left neck and trapezius muscle pain. He feels this came on suddenly without any precipitating event. He is very active but doing any new exercises etc... It is unusual for him to have a headache. Characteristic - aching. Moderate pain lasted for hours but never completely resolved since then until today in the ER. He took acetaminophen to good effect. However the following day it woke him up and was much more painful, again associated with similar vision changes in his right eye. It has been waxing and waning since but actually improving for the last 2 days. Yesterday afternoon he notes a brief episode of not being able to move his right index finger to press buttons on the TV remote. Today he had an episode of numbness in just his distal 3rd digit on right hand which started at approximately 10:30am. Associated slurring of speech, expressive aphasia (he describes being unable to get the right words out). This lasted approximately 5-10 minutes and then completely resolved. He currently denies any vision/hearing/speech changes, extremity weakness or change in sensation. He does ongoing mild left superior trapezius discomfort. The patient is self employed - snow removal, splitting firewood. Currently isolating as protocol in lockdown with little contacts outside of his family who are well. No fevers, chills, shortness of breath, no cough, no nasal congestion, loss taste or smell. He has a history of Neurological Lyme disease in 2013 and 2015. Principal Diagnosis TIA bilateral Middle cerebral artery stenotic areas Discharge Exam The patient appeared well Vital signs as documented. Lungs are clear to auscultation and percussion. Cardiac exam, Rhythm is regular.. No murmurs, rubs or gallops. Abdominal exam reveals normal bowel sounds, soft non tender, no masses Extremities are nonedematous and both pedal pulses are normal. Neurologic exam is alert and oriented, no focal loss of strength or sensation Skin is without bruises or rashes Psychologically is without concerns for anxiety or depression Discharge Data Allergies Allergy/AdvReac Type Severity Reaction Status Date / Time No Known Allergies Allergy Mild Unverified 08/05/19 13:24 Consultations 08/05/19 16:28 ED Decision to Admit Stat 08/05/19 20:47 Consult Case Management - Discharge Planning Routine Consult Neurology Routine Ordered Studies 08/05/19 12:35 CT angio head w con Stat CT angio neck with con Stat CT head/brain wo con Stat 08/06/19 15:26 MR brain wo/w con Routine Hospital Course (1) Stroke-like symptoms: Admitted to PCU for cardiac monitoring, no arrhythmia was found Stroke without tPA protocol Complete stroke workup with negative TTE, intermittent lipid profile(starting atorvastatin), HbA1C was normal Concern for vasculitis from [place] telestroke (Dr Blanc) and recommended workup with lumbar puncture, serum ESR,CRP, ANCA, ALEXYS screen. Given sibling with rheumatoid will also order RF and anti-CCP Ab. Concern for possible lyme disease causing neurological symptoms previously and multiple tick exposures. IgM screen negative therefore will hold off antibiotics at present pending >= 2/3 IgM bands final Lyme disease testing is pending at time of discharge as well as rheumatoid factor ALEXYS screen ANCA as well as Moncho 2 V6 17F ASA + Plavix loading doses as recommended by telestroke given in ER, continue ASA 81mg PO daily + Plavix 75mg PO daily for 3 weeks then ASA alone as recommended PT/OT/SLT consults no issues reported Consult neurology - discussed case with Dr Ridley and telestroke neurologist, Dr. Nieves evaluate the patient called me personally recommended 3 weeks of Plavix therapy overlapping with aspirin and beginning atorvastatin for secondary risk prevention Of note: No indication for COVID-19 testing (suspected CVA/TIA appears to be related to stenosis, not thromboembolic, no UTI Sx, fevers or chills). No need for aspiration precaution or negative pressure room. Therefore test was cancelled. (2) Expressive aphasia: Now resolved. Suspected TIA/CVA as above. (3) Intracranial vascular stenosis: As above. (4) Polycythemia: Hgb 18.2. No baseline but dehydration not suspected. No androgens or anabolic steroids as per patient. Given history of headache and suspected CVA/TIA will test for JAK2 V617F mutation. Polycythemia improved before discharge although on the upper end of normal with a hemoglobin of 16.7 (5) Sinus bradycardia: Patient reports longstanding history of this. Implantable loop recorder placed previously after suspected lyme disease but no arrhythmias noted. His loop recorder was interrogated prior to MRI scanning there were no data points recorded recommendation of removal of loop recorder to be discussed with primary care provider and fisher pot in the future Total Time Total Time Spent Total Time Spent (In Minutes): It required greater than 30 minutes to prepare this patient for discharge Discharge Plan Discharge Items Patient Disposition: Home - Self-Care Reason For Visit: STROKE-LIKE SYMPTOMS Discharge Diagnosis: transient ischemic attack, reversable neurolgoical deficits Activity: Resume your previous activity Non-emergency contact: Primary Care Provider and Neurologist Call non-emergency contact if: you have any medication questions Follow-up/Referrals: Carlos Nieves MD [Physician] - 08/27/19 (please follow up before 3 weeks to discuss plavix) Carlos Arellano, DO [Primary Care Provider] - Diet: Heart Healthy Addtl Attending Provider Instructions: you will be asked to take an Aspirin a day you will be Rx for Plavix(clopidogrel) to be taken daily for the next 3 weeks and then as directed by neurology additionally you will be give a "statin" to take daily, you may need intermittent lab work to follow the affects of this medication Pending Studies at Discharge: Yes Studies:: Echocardiogram Stand-Alone Forms: Medications to Prevent Stroke, My [facility] Pocket Tales, Smoking Cessation Medications and DC Order Prescriptions: New clopidogrel 75 mg Tablet 75 mg PO QAM Qty: 21 RF: 0 aspirin 81 mg Tablet,Delayed Release (Dr/Ec) 81 mg PO QAM Qty: 180 RF: 3 atorvastatin 40 mg tablet 40 mg PO DAILY Qty: 30 RF: 5 No Action No Known Home Medications RF: 0 Discharge Orders: Discharge Order (Routine); Ordered 08/06/19 Ordered By: Greg Gleason/Other Patient Handouts: Discharge Instructions for Transient Ischemic Attack TIA Admission Data Admit Date/Time: 08/05/19 16:50 Attending Provider: Greg Stevenson Admit Provider: Job Hi Primary Care Provider: Carlos Arellano Other Providers: Job Hi ; Pardeep Ridley Coding Level of Care Code D/C Day Management >30 mins Diagnoses Stroke-like symptoms R29.90 Expressive aphasia R47.01 Intracranial vascular stenosis I67.9 Polycythemia D75.1 Sinus bradycardia R00.1
[2019-08-09 09:45] LABS: 18KDIGG Band REACTIVE; 23KDIGG Band NON-REACTIVE; 23KDIGM Band NON-REACTIVE; 28KDIGG Band NON-REACTIVE; 30KDIGG Band NON-REACTIVE; 39KDIGG Band NON-REACTIVE; 39KDIGM Band NON-REACTIVE; 41KDIGG Band REACTIVE; 41KDIGM Band NON-REACTIVE; 45KDIGG Band NON-REACTIVE; 58KDIGG Band NON-REACTIVE; 66KDIGG Band NON-REACTIVE; 93KDIGG Band NON-REACTIVE; Lyme Antibodies, WB IgG NEGATIVE (NEGATIVE); Lyme Antibodies, WB IgM NEGATIVE (NEGATIVE)
--- NOTE | 2019-08-09 11:50 | Pharmacy Report ---
Pharmacist Post D/C Phone Note - Phone Note: Date of phone call: August 09, 2019. The patient and/or patient senior account representative(s) were unable to be reached for a follow-up phone call within the 72 hour time frame. Discharge counseling pharmacist contact information has already been provided to the patient should questions arise. Thank you for allowing us to be involved in the care of this patient. - Home Medications: Home Medications Medication Instructions Recorded Confirmed No Known Home Medications 11/24/18 08/05/19 New Rx's Medication Instructions Recorded aspirin 81 mg PO QAM #180 tab 08/06/19 atorvastatin 40 mg PO DAILY #30 tab 08/06/19 clopidogrel 75 mg PO QAM #21 tab 08/06/19
[2019-08-09 12:00] LABS: EBV DNA Quant PCR <200 copies/mL (<200); EBV DNA Quant Source Whole Blood; EBV DNA, Quant Log <2.30 Log cps/mL (<2.30)
[2019-08-09 14:25] LABS: ANCA Screen Negative (Negative); Anti Nuclear Antibody Screen NEGATIVE (NEGATIVE)
--- NOTE | 2019-08-15 11:24 | Coding Query ---
CODING QUERY To promote full compliance with coding requirements relating to patient care, provider participation is requested in all cases of dental mechanic uncertainty. Please assist us with the question(s) below: Coding Question(s): There is some conflicting information in the documentation. Discharge diagnosis on discharge summary states 'transient ishemic attack,' but 'stroke-like symptoms' are also stated throughout. Could you please clarify if the patient was found to have a 'transient ischemic attack' , 'stoke like symptoms' or if this was something else? Physician's Response(s): transient ischemic attack, stroke ruled out Thank you Lupe Herrera Principal Diagnosis: "that condition established after study, to be chiefly responsible for occasioning the admission of the patient to the hospital for care." Co-Existing Principal Diagnosis: "when two or more diagnoses equally meet the criteria for principal diagnosis as determined by the circumstances of admission, diagnostic work up, and/or therapy provided, and the Alphabetic Index, Tabular List, or another coding guideline does not provide sequencing direction, any one of the diagnoses may be sequenced first." "When the physician has documented what appears to be a current diagnosis in the body of the record, but has not included the diagnosis in the final diagnostic statement, the physician should be asked whether the diagnosis should be added." ([facility] 2 QTR90. p3-4) CELENA
== END 2019-08-06 18:50 | disposition home or self-care (01) ==
LOC: ED 11:57 → 2S 16:50 → SUATTDRO 16:50 → INTOOBSV 16:50 → 2S 20:22